=== PATIENT | male | born 1960 | race Caucasian/White ===

== ENCOUNTER 2018-01-13 10:54 | Emergency (ER) | payer OTHER ==
[~2018-01-13] VITALS: Ht 182.9 cm; Wt 84.1 kg
[2018-01-13 11:23] LABS: URINE BLOOD DIPSTICK LARGE (NEGATIVE); URINE COLOR YELLOW; URINE GLUCOSE - DIPSTICK NEGATIVE (NEGATIVE); URINE KETONE 40 mg/dL (NEGATIVE); URINE LEUK ESTERASE NEGATIVE (NEGATIVE); URINE NITRITE - DIPSTICK NEGATIVE (Negative); URINE PROTEIN - DIPSTICK 100 mg/dL (NEG-TRACE); URINE SPECIFIC GRAVITY >=1.030; URINE UROBILINOGEN - DIPSTICK 0.2 E.U./dL (0.2)
[2018-01-13 11:24] LABS: URINE BILIRUBIN - DIPSTICK SMALL (NEGATIVE); URINE CLARITY CLEAR
[2018-01-13 11:25] LABS: HEMATOCRIT 36.7 % (39.0-50.0); HEMOGLOBIN 12.7 g/dl (14.0-18.0); IMMATURE GRANULOCYTES 0.3 % (0.0-5.0); MEAN CELL VOLUME 91.8 fL CALC (80.0-100.0); MEAN CORPUSCULAR HGB 31.8 pG CALC (26.0-32.0); MEAN CORPUSCULAR HGB CONC 34.6 g/L CALC (32.0-36.0); RED CELL DISTRI WIDTH 12.6 % (11.5-15.5)
[2018-01-13 11:25] LABS: BARBITURATES NEGATIVE (NEGATIVE); COCAINE NEGATIVE (NEGATIVE); METHADONE NEGATIVE (NEGATIVE); OXCYCODONE NEGATIVE (NEGATIVE); TETRAHYDROCANNABIONOL NEGATIVE (NEGATIVE); TRICYLIC ANTIDEPRESSANTS NEGATIVE (NEGATIVE); URINE RBC TNTC RBC/hpf (0-5); URINE SQUAMOUS EPITHELIAL CELL FEW EPI/hpf (0-FEW)
[2018-01-13] MEDS ORDERED: PROTONIX40 M4 (11:26)
[2018-01-13] MEDS ORDERED: PRAVACHOL20 MG PO (11:26)
[2018-01-13] MEDS ORDERED: LISINOPRIL2.5 MG PO (11:26)
[2018-01-13] MEDS ORDERED: ASPIRIN81 MG PO (11:26)
[2018-01-13 11:34] LABS: ALBUMIN 4.6 g/dL (3.2-5.0); ALKALINE PHOSPHATASE 89 u/l (38-126); ANION GAP 19 (6-22 (CALC)); BILIRUBIN, TOTAL 1.8 mg/dL (0.0-1.4); BUN 36 mg/dL (9-20); BUN/CREATININE RATIO 33 (12-20 (CALC)); CARBON DIOXIDE 21 mmol/l (22-30); CHLORIDE 110 mmol/l (95-108); CREATININE 1.1 mg/dL (0.7-1.3); GFR > 60 ML/MIN (>=60 (CALC)); GFR FOR AFR.AMER. > 60 ML/MIN (>=60 (CALC)); INTERNATIONAL NORMALIZED RATIO 1.1 RATIO (0.7-1.3); POTASSIUM 3.9 mmol/l (3.5-5.1); PROTHROMBIN TIME 11.1 SECONDS (9.0-12.5); SGOT/AST 126 u/l (17-59); SODIUM 145 mmol/l (137-146); TOTAL PROTEIN 7.8 g/dL (6.3-8.2)
[2018-01-13 11:40] LABS: URINE MUCUS MODERATE hpf (NONE-FEW)
[2018-01-13] MEDS ORDERED: BACTRIM DS1 TAB PO (13:51)
[2018-01-13] MEDS ORDERED: ULTRAM50 M1 PO (13:51)
[2018-01-13] MEDS ORDERED: FLEXERIL PO (13:51)
[2018-01-13 14:19] VITALS: BP 107/70
== END 2018-01-13 14:57 | disposition short-term general hospital (02) | DRG 558 ==
LOC: ED 10:54
PROVIDERS: Emergency Medicine
PROC: 0T9B70Z Drainage of Bladder with Drainage Device, Via Natural or Artificial Opening (ICD-10-PCS; principal; 2018-01-13)
PROC: 0BH17EZ Insertion of Endotracheal Airway into Trachea, Via Natural or Artificial Opening (ICD-10-PCS; 2018-01-13)
DX: M62.82 Rhabdomyolysis (principal); R41.82 Altered mental status, unspecified; T43.644A Poisoning by ecstasy, undetermined, initial encounter; Y92.149 Unspecified place in prison as the place of occurrence of the external cause